=== PATIENT | male | born 1980 | race Caucasian/White ===

== ENCOUNTER 2021-07-30 15:40 | Emergency (ER) | payer OTHER, SELFPAY ==
--- NOTE | ~2021-07-30 | XR_ITS ---
XR chest 2V DATE: 07/30/2021 17:26 INDICATION: Mid and left-sided chest pain for 3 days TECHNIQUE: PA and lateral views COMPARISON: None FINDINGS: Normal heart size. No hilar or mediastinal enlargement. No pulmonary infiltrate or consolid ation, pleural effusion or pulmonary vascular congestion or pneumothorax. Included skeletal structures are unremarkable. IMPRESSION: No active cardiopulmonary disease Reviewed, dictated and finalized at location A.
--- NOTE | 2021-07-30 15:42 | ECG_ITS ---
Measurements Intervals [place] Rate: 54 P: 53 MO: 187 QRS: 29 QRSD: 94 T: 41 QT: 408 QTc: 387 Interpretive Statements SINUS BRADYCARDIA NORMAL ECG NO PREVIOUS ECG AVAILABLE FOR COMPARISON Electronically Signed On 07-30-2021 17:36:18 CDT by Jamil Medel M.D.
[2021-07-30 15:51] VITALS: BP 165/92; PULSE 59; RESP 16; TEMP 37.3; O2SAT 100
[2021-07-30 16:11] LABS: Basophils Absolute Auto 0.1 K/mm3 (0.0-0.1); Basophils Percent Auto 0.7 % (0.2-1.2); Eosinophils Absolute Auto 0.1 K/mm3 (0-0.3); Eosinophils Percent Auto 1.6 % (0-4.4); Hematocrit 45.3 % (42.0-52.0); Hemoglobin 15.9 g/dL (14.0-18.0); Immature Granulocyte Absolute 0.01 K/mm3 (0.00-0.031); Immature Granulocyte Percent A 0.1 % (0-0.5); Lymphocytes Percent Auto 20.3 % (18.3-44.2); Mean Corpuscular HGB Conc 35.1 g/dl (32-36); Mean Corpuscular Hemoglobin 31.9 pg (26-34); Mean Platelet Volume 9.8 fl (7.4-10.4); Monocytes Absolute Auto 0.5 K/mm3 (0.1-0.6); Monocytes Percent Auto 7.4 % (2.6-8.5); Neutrophils Absolute Auto 4.8 K/mm3 (1.3-6.7); Neutrophils Percent Auto 69.9 % (45.5-73.1); Platelet Count Result 251 k/mm3 (150-375); Red Blood Count 4.98 M/mm3 (4.6-6.20); Red Cell Distribution Width 12.1 % (11.5-14.5); White Blood Count 6.9 K/mm3 (4.5-10.0)
[2021-07-30 16:20] LABS: INR 1.1; Prothrombin Time 13.3 Seconds (11.1-14.7)
[2021-07-30 16:21] LABS: Alanine Aminotransferase 32 U/L (4-50); Albumin Level 4.7 g/dL (3.5-5.1); Alkaline Phosphatase 60 U/L (38-126); Anion Gap 8 mmol/L (8-16); Aspartate Amino Transferase 29 U/L (17-59); Bilirubin,Total 0.6 mg/dL (0.2-1.3); Blood Urea Nitrogen 22 mg/dL (9-20); Calcium 8.9 mg/dL (8.4-10.2); Carbon Dioxide 25 mmol/L (22-30); Chloride 105 mmol/L (98-107); Estimated CRCL calculation 74 ml/min; Estimated Glomerular Filt Rate > 60; Glucose 100 mg/dL (65-110); Lipase 117 U/L (23-300); Partial Thromboplastin Time 32.6 SECONDS (22.3-36.8); Potassium 4.2 mmol/L (3.4-5.0); Sodium 138 mmol/L (137-145)
[2021-07-30 16:33] LABS: Troponin I < 0.012 ng/mL (0.000-0.034)
[2021-07-30 19:08] VITALS: BP 122/82; PULSE 60; RESP 15; O2SAT 100
[2021-07-30 19:10] VITALS: PULSE 55
[2021-07-30 19:30] VITALS: O2SAT 98
[2021-07-30 19:42] LABS: Troponin I < 0.012 ng/mL (0.000-0.034)
--- NOTE | 2021-07-30 19:49 | ED.CHESTPAIN ---
HPI - Chest Pain General Chief Complaint: Chest Pain Stated Complaint: chest pain x 3days Time Seen by Provider: 07/30/21 19:04 History of Present Illness HPI narrative: Patient is a 41-year-old male who presents ER with left-sided chest pain. Ongoing for 3 days. Behind his left pack. Worse with deep breath. No exertional chest pain or dyspnea. Pain improved after taking some anti-inflammatories. No runny nose or sore throat or productive cough. No history of heart disease. No leg swelling or cramping in the calf. Denies hemoptysis. No history of PE. Related Data Home Medications Medication Instructions Recorded Confirmed No Home Medications 03/22/21 07/30/21 Allergies Allergy/AdvReac Type Severity Reaction Status Date / Time No Known Allergies Allergy Unknown Verified 07/30/21 19:11 Review of Systems Review of Systems: All systems reviewed & are unremarkable except as noted in HPI and below Constitutional: Constitutional: Denies chills, Denies fever(s) and Denies weakness ENT: Denies nasal congestion and Denies sore throat Cardiovascular: Cardiovascular: Reports chest pain, Denies rapid heart rate and Denies radiating jaw, neck or arm pain Respiratory: Respiratory: Denies cough, Denies dyspnea and Denies wheezing Gastrointestinal: Gastrointestinal: Denies abdominal pain, Denies nausea and Denies vomiting Musculoskeletal: Musculoskeletal: Denies muscle cramps Neurologic: Denies headache(s), Denies focal weakness and Denies numbness PMFSH Past Medical History Medical History (Updated 07/30/21 @ 20:06 by Bj Buitrago MD) No active medical problems Surgical History Surgical History (Updated 07/30/21 @ 19:50 by Bj Buitrago MD) History of knee surgery Social History Social History Alcohol intake: current Drinks per week: 2 Substance use: unknown Exam Narrative: GENERAL: Well-appearing, well-nourished, and in no acute distress. HEAD: Normocephalic, atraumatic. EYES: PERRL and EOMI. ENT: TM's normal bilaterally. CHEST: Clear to auscultation. No respiratory distress. HEART: Regular rate and rhythm. Normal peripheral pulses. EXTREMITIES: Normal range of motion. No edema. SKIN: Warm, dry, no rash. NEURO: Alert and oriented x3. PSYCH: Normal mood and affect. Course Course Emergency Course: Patient resting comfortably. Informed results. Troponins negative x2. Normal EKG and chest x-ray. Symptoms felt be related to pleurisy or musculoskeletal chest pain. Recommend follow-up with PCP. Return precautions discussed. Patient prefers to take [id number] pain medication and has been recommended to take Aleve 1 to 2 tablets twice a day. Vital Signs Vital signs: Vital Signs Temperature 99.2 F 07/30/21 15:51 Pulse Rate 59 L 07/30/21 15:51 Respiratory Rate 16 07/30/21 15:51 Blood Pressure 165/92 H 07/30/21 15:51 Pulse Oximetry 100 07/30/21 15:51 Temperature 99.2 F 07/30/21 15:51 Pulse Rate 55 L 07/30/21 19:10 Respiratory Rate 15 07/30/21 19:08 Blood Pressure 122/82 07/30/21 19:08 Pulse Oximetry 100 07/30/21 19:08 MDM - Chest Pain Lab Data Result diagrams: 07/30/21 16:03 07/30/21 16:03 Labs: Lab Results 07/30/21 07/30/21 07/30/21 Range/Units 16:03 16:03 16:03 WBC 6.9 (4.5-10.0) K/mm3 RBC 4.98 (4.6-6.20) M/mm3 Hgb 15.9 (14.0-18.0) g/dL Hct 45.3 (42.0-52.0) % MCV 91.0 (80-100) fl MCH 31.9 (26-34) pg MCHC 35.1 (32-36) g/dl RDW 12.1 (11.5-14.5) % Plt Count 251 (150-375) k/mm3 MPV 9.8 (7.4-10.4) fl Immature Gran % (Auto) 0.1 (0-0.5) % Neut % (Auto) 69.9 (45.5-73.1) % Lymph % (Auto) 20.3 (18.3-44.2) % [place] % (Auto) 7.4 (2.6-8.5) % Eos % (Auto) 1.6 (0-4.4) % Baso % (Auto) 0.7 (0.2-1.2) % Lymph # (Auto) 1.40 (0.9-3.2) K/mm3 [place] # (Auto) 0.5 (0.1
[2021-07-30 20:23] VITALS: BP 119/69; PULSE 53; RESP 14; O2SAT 98
== END 2021-07-30 20:25 | disposition home or self-care (01) ==
PROVIDERS: Emergency Medicine; Emergency Provider Emergency Medicine
DX: R09.1 Pleurisy (principal); R00.1 Bradycardia, unspecified
CPT/HCPCS: 36415; 71046; 80053; 83690; 84484; 85025; 85610; 85730; 93005; 99284